=== PATIENT | male | born 1975 | race Caucasian/White ===

== ENCOUNTER 2022-07-07 08:59 | Emergency (ER) | payer SELFPAY ==
[~2022-07-07] VITALS: Ht 180.3 cm; Wt 109.0 kg
[2022-07-07 09:19] VITALS: BP 212/124
[2022-07-07] MEDS ORDERED: ACETAMINOPHEN 325MG TABLET PO ONE (09:30)
[2022-07-07] MEDS ORDERED: TOPUD PO (11:45)
== END 2022-07-07 12:05 | disposition home or self-care (01) ==
LOC: ER 08:59
DX: S00.83XA Contusion of other part of head, initial encounter (principal); S00.432A Contusion of left ear, initial encounter; R03.0 Elevated blood-pressure reading, without diagnosis of hypertension; Y04.2XXA Assault by strike against or bumped into by another person, initial encounter; Y93.89 Activity, other specified; Y92.89 Other specified places as the place of occurrence of the external cause
CPT/HCPCS: 70486; 99284